=== PATIENT | male | born 1960 | race Caucasian/White ===

== ENCOUNTER 2017-02-22 17:30 | Observation (INO) | payer OTHER ==
[~2017-02-22] VITALS: Ht 172.7 cm; Wt 95.5 kg
[2017-02-22 17:32] VITALS: BP 164/88; PULSE 88; RESP 18; TEMP 97.5; O2SAT 90
--- NOTE | 2017-02-22 17:42 | PD ---
Physical Exam Time Seen by Provider: 17:39 Narrative 56yo M c/o abd pain that started about 2 hours ago. Had a procedure this morning to stretch his esophagus as [place]. Hx of esophageal CA and had most of esophagus and stomach removed January 25 at [facility]. +Vomiting. Denies fever. Patient seen in triage. VS reviewed. Awaiting bed placement. Data Data Last Documented VS Vital Signs Date Time Temp Pulse Resp B/P Pulse Ox O2 Delivery O2 Flow Rate FiO2 02/22/17 17:32 97.5 88 18 164/88 90 Room Air MDM Supervised Visit with DARRYN: Jocelyn Burnette Feb 22, 2017 17:42
[2017-02-22] MEDS ORDERED: SODIUM CHLOR 0.9% 1000 ML INJ 1,000 ML IV SCH (18:04)
--- NOTE | 2017-02-22 18:12 | PD ---
HPI Chief Complaint: Abdominal Pain Time Seen by Provider: 18:04 Travel History International Travel<30 days: No Contact w/Intl Traveler<30days: No Traveled to known affect area: No History of Present Illness HPI 56-year-old male with history of esophageal cancer status post distal esophagectomy, had a endoscopy and esophageal stretching this morning at [place], presents to the ER today because he states that he started having nausea , vomiting, and stomach cramping. He states he has been constipated, did have a bowel movement today. He states the cramping is on and off. Pain is currently an 8 out of 10. He denies any fevers or other symptoms. Modifying Factors: None Associated Signs & Symptoms: Status post esophageal procedure this morning, abdominal cramping pain, vomiting Risk Factors: History of esophageal cancer and esophagectomy PFSH Past Medical History Autoimmune Disease: No Anxiety: Yes Depression: Yes Cancer: No Cardiovascular Problems: Yes High Cholesterol: Yes Chemotherapy: Yes (ESOPHAGEAL CA) Endocrine: No Genitourinary: No Headaches: Yes Hypertension: Yes (NOT CURRENTLY) Musculoskeletal: Yes Neurologic: Yes Respiratory: Yes Immunizations Current: Yes Sleep Apnea: Yes (DOES NOT USE C PAP) Past Surgical History Abdominal Surgery: Yes (UMBILICAL HERNIA REPAIR) Body Medical Devices: SPINAL CORD STIMULATOR Cholecystectomy: Yes Neurologic Surgery: Yes (SPINAL CORD STIMULATOR, CERVICAL FUSION C5-C6) Oral Surgery: Yes (TEETH IMPLANTS) Other Surgery: Yes (HEMMORHOIDECTOMY) Social History Alcohol Use: Yes (OCCATIONAL BEER) Tobacco Use: No (FORMER) Substance Use: No Allergies-Medications (Allergen,Severity, Reaction): Coded Allergies: No Known Allergies (Verified , 02/22/17) Reported Meds & Prescriptions Reported Meds & Active Scripts Active Review of Systems Except as stated in HPI: all other systems reviewed are Neg Physical Exam Narrative GENERAL: Well-developed middle age male patient currently in mild distress. Awake and oriented 3. SKIN: Focused skin assessment warm/dry. HEAD: Atraumatic. Normocephalic. EYES: Pupils equal and round. No scleral icterus. No injection or drainage. ENT: No nasal bleeding or discharge. Mucous membranes pink and moist. NECK: Trachea midline. No JVD. CARDIOVASCULAR: Regular rate and rhythm. No murmur appreciated. RESPIRATORY: No accessory muscle use. Clear to auscultation. Breath sounds equal bilaterally. GASTROINTESTINAL: Abdomen soft, upper abdominal tenderness without guarding or rebound, mildly distended. Hepatic and splenic margins not palpable. G-tube appears to be in place. MUSCULOSKELETAL: No obvious deformities. No clubbing. No cyanosis. No edema. NEUROLOGICAL: Awake and alert. No obvious cranial nerve deficits. Motor grossly within normal limits. Normal speech. PSYCHIATRIC: Appropriate mood and affect; insight and judgment normal. Data Data Last Documented VS Vital Signs Date Time Temp Pulse Resp B/P Pulse Ox O2 Delivery O2 Flow Rate FiO2 02/22/17 18:43 91 Nasal Cannula 4 02/22/17 17:32 97.5 88 18 164/88 Orders Complete Blood Count With Diff (02/22/17 18:04) Comprehensive Metabolic Panel (02/22/17 18:04) Lipase (02/22/17 18:04) Urinalysis - C+S If Indicated (02/22/17 18:04) Ct Abd/Pel W Iv Contrast(Rout) (02/22/17 18:04) Iv Access Insert/Monitor (02/22/17 18:04) Ecg Monitoring (02/22/17 18:04) Oximetry (02/22/17 18:04) Morphine Inj (Morphine Inj) (02/22/17 18:15) Ondansetron Inj (Zofran Inj) (02/22/17 18:15) Sodium Chlor 0.9% 1000 Ml Inj (Ns 1000 M (02/22/17 18:04) Sodium Chloride 0.9% Flush (Ns Flush) (02/22/17 18:15) Labs Laboratory Tests Test 02/22/17 18:15 White Blood Count 12.0 TH/MM3 Red Blood Count 3.95 MIL/MM3 Hemoglobin 12.1 GM/DL Hematocrit 35.9 % Mean Corpuscular Volume 90.7 FL Mean Corpuscular Hemoglobin 30.5 PG Mean Corpuscular Hemoglobin 33.7 % Concent Red Cell Distribution Width 14.1 % Platelet Count 357 TH/MM3 Mean Platelet Volume 7.6 FL Neutrophils (%) (Auto) 85.8 % Lymphocytes (%) (Auto) 6.7 % Monocytes (%) (Auto) 5.1 % Eosinophils (%) (Auto) 2.1 % Basophils (%) (Auto) 0.3 % Neutrophils # (Auto) 10.3 TH/MM3 Lymphocytes # (Auto) 0.8 TH/MM3 Monocytes # (Auto) 0.6 TH/MM3 Eosinophils # (Auto) 0.3 TH/MM3 Basophils # (Auto) 0.0 TH/MM3 CBC Comment DIFF FINAL Differential Comment Sodium Level 139 MEQ/L Potassium Level 3.8 MEQ/L Chloride Level 100 MEQ/L Carbon Dioxide Level 34.9 MEQ/L Anion Gap 4 MEQ/L Blood Urea Nitrogen 9 MG/DL Creatinine 0.95 MG/DL Estimat Glomerular Filtration 81 ML/MIN Rate Random Glucose 105 MG/DL Calcium Level 9.1 MG/DL Aspartate Amino Transf 14 U/L (AST/SGOT) Alanine Aminotransferase 15 U/L (ALT/SGPT) Albumin 3.1 GM/DL Lipase 78 U/L [facility] Medical Decision Making Medical Screen Exam Complete: Yes Emergency Medical Condition: Yes Medical Record Reviewed: Yes Interpretation(s) Laboratory Tests Test 02/22/17 18:15 White Blood Count 12.0 TH/MM3 (4.0-11.0) Red Blood Count 3.95 MIL/MM3 (4.50-5.90) Hemoglobin 12.1 GM/DL (13.0-17.0) Hematocrit 35.9 % (39.0-51.0) Neutrophils (%) (Auto) 85.8 % (16.0-70.0) Lymphocytes (%) (Auto) 6.7 % (9.0-44.0) Neutrophils # (Auto) 10.3 TH/MM3 (1.8-7.7) Lymphocytes # (Auto) 0.8 TH/MM3 (1.0-4.8) Carbon Dioxide Level 34.9 MEQ/L (21.0-32.0) Anion Gap 4 MEQ/L (5-15) Estimat Glomerular Filtration 81 ML/MIN (>89) Rate Aspartate Amino Transf 14 U/L (15-37) (AST/SGOT) Albumin 3.1 GM/DL (3.4-5.0) Differential Diagnosis Abdominal pain, nausea and vomiting after endoscopy this morningpostop pain versus obstruction versus esophageal rupture versus perforation versus esophagitis Narrative Course Lab work and CAT scan ordered for the patient for further evaluation. IV fluids and Zofran given. Physician Communication Physician Communication Case is signed out to Dr. Arreola at 7 PM pending CAT scan and workup. Disposition based on workup. Diagnosis Primary Impression: Nausea and vomiting Elise Stevenson MD Feb 22, 2017 18:12
[2017-02-22] MEDS ORDERED: MORPHINE SULFATE 4 MG/ML INJ IV PUSH ONE (18:15)
[2017-02-22] MEDS ORDERED: SODIUM CHLORIDE 0.9% FLUSH 10 ML FLUSH IV FLUSH PRN ×2 (18:15→21:45)
[2017-02-22] MEDS ORDERED: ONDANSETRON HCL 4 MG/2 ML VIAL IVP ONE ×2 (18:15→21:00)
[2017-02-22 18:27] LABS: AUTOMATED NEUTROPHIL # 10.3 TH/MM3 (1.8-7.7); BASOPHIL % 0.3 % (0.0-2.0); EOSINOPHIL # 0.3 TH/MM3 (0-0.4); EOSINOPHIL % 2.1 % (0.0-4.0); HEMATOCRIT 35.9 % (39.0-51.0); HEMO FLAGS DIFF FINAL; LYMPH % 6.7 % (9.0-44.0); LYMPHOCYTE # 0.8 TH/MM3 (1.0-4.8); MEAN CELL VOLUME 90.7 FL (80.0-100.0); MEAN CORPUSCULAR HEMOGLOBIN 30.5 PG (27.0-34.0); MEAN CORPUSCULAR HGB CONC 33.7 % (32.0-36.0); MONO % 5.1 % (0.0-8.0); NEUT % 85.8 % (16.0-70.0); PLATELET COUNT 357 TH/MM3 (150-450); RED BLOOD COUNT 3.95 MIL/MM3 (4.50-5.90); RED CELL DISTRIBUTION WIDTH 14.1 % (11.6-17.2)
[2017-02-22 18:43] VITALS: O2SAT 91
[2017-02-22 18:50] LABS: ALT (GPT) 15 U/L (12-78); ANION GAP 4 MEQ/L (5-15); AST (GOT) 14 U/L (15-37); BICARBONATE 34.9 MEQ/L (21.0-32.0); BLOOD UREA NITROGEN 9 MG/DL (7-18); CHLORIDE 100 MEQ/L (98-107); GLOMERULAR FILTRATION RATE 81 ML/MIN (>89); POTASSIUM 3.8 MEQ/L (3.5-5.1); SODIUM (NA) 139 MEQ/L (136-145)
[2017-02-22 18:53] LABS: ALKALINE PHOSPHATASE 143 U/L (45-117); TOTAL BILIRUBIN ADULT 0.5 MG/DL (0.2-1.0)
[2017-02-22] MEDS ORDERED: IOHEXOL 350 MG/ML 10 ML VIAL (for RAD DIAG) IV ONE (19:49)
--- NOTE | 2017-02-22 20:20 | RADRPT ---
EXAM DATE/TIME: 02/22/2017 19:36 This report includes an Addendum and supersedes previous reports for this exam. [place] COMPARISON: No previous studies available for comparison. INDICATIONS : Abdomen pain, lower pelvis pain started after endo procedure IV CONTRAST: 81 cc Omnipaque 350 (iohexol) IV ORAL CONTRAST: No oral contrast ingested. RADIATION DOSE: 12.02 CTDIvol (mGy) MEDICAL HISTORY : Cardiovascular disease. Hypertension. ESOPHOGEAL CANCER SURGICAL HISTORY : Cholecystectomy. Umbilical hernia repair. CERVICAL FUSION, ESPHOGEAL SURGERY ENCOUNTER: Initial ACUITY: 1 day PAIN SCALE: 7/10 LOCATION: Abdomen TECHNIQUE: Volumetric scanning of the abdomen and pelvis was performed. Using automated exposure control and ad justment of the mA and/or kV according to patient size, radiation dose was kept as low as reasonably achievable to obtain optimal diagnostic quality images. FINDINGS: LOWER LUNGS: There is a small right pleural effusion. There postsurgical changes status post esophagectomy and gas tric pull-through procedure. There is mild consolidation at the right lung base. There is mild consol idation left lower lobe as well. LIVER: Homogeneous density without lesion. There is no dilation of the biliary tree there he is status post cholecystectomy. SPLEEN: Normal size without lesion. PANCREAS: Within normal limits. KIDNEYS: Normal in size and shape. There is no mass, stone or hydronephrosis. ADRENAL GLANDS: Within normal limits. VASCULAR: There is no aortic aneurysm. BOWEL/MESENTERY: There are postsurgical changes status post esophagectomy and gastric pull through procedure. There ar e several low-attenuation fluidlike collections in the upper abdomen along the course of the esophage ctomy. The larger measures 4.4 x 4.6 cm in diameter and is best seen on axial image #33. There is a s econd lower density collection seen on axial image #26 measuring up to approximately 2.8 x 2.7 cm. Th ere is wispy soft tissue density along portions of the anterior mesentery. The small bowel is decompr essed. The colon is unremarkable in appearance. There is a jejunostomy tube in place. No oral contras t was given limiting the sensitivity of the exam. ABDOMINAL WALL: Within normal limits. RETROPERITONEUM: There is no lymphadenopathy. BLADDER: No wall thickening or mass. REPRODUCTIVE: Within normal limits. INGUINAL: There is no lymphadenopathy or hernia. MUSCULOSKELETAL: There is a 4.5 x 3.2 cm low-attenuation fluidlike collection along the right lower lateral chest wall which is located adjacent to the right effusion. This measures 9 Hounsfield units in density. The os seous structures are otherwise unremarkable. CONCLUSION: 1. Surgical changes status post esophagectomy and gastric pull through procedure. There are several l ow-attenuation fluidlike structures located in the upper abdomen which are of unclear significance. I t is not certain whether these are intraluminal or extraluminal. Comparison with any old outside stud ies would be helpful. A followup study with oral contrast may be helpful. 2. Low attenuation collection along the right lower lateral chest wall measuring up to approximately 4.5 x 3.2 cm in diameter measuring 9 Hounsfield units in density. This is nonspecific but could repre sent a postsurgical change. This also could represent fluid extending through the lateral chest wall. 3. Wispy soft tissue densities along the anterior mesentery of the abdomen of unclear significance. T his could represent inflammatory change. 4. Small right pleural effusion. There is mild consolidation in both lower lobes. Peterson Carter MD on February 22, 2017 at 20:08 Board Certified Radiologist. This report was verified electronically. ADDENDUM: I've been asked to review the above. Low-density collections are identified at the gastrojejunal junc tion. There is communication from this collection to a similar density lesion associated with the jones creatic head/neck. Hounsfield measurements are approximately 15 and I believe this probably represent s fluid. Additional low density lesion is identified in the lateral chest which again, may represent fluid. However, with no a priori knowledge of the patient's clinical condition or surgical interventi ons, abnormal low density lymph nodes or mass lesions cannot be completely excluded. Comparison with any outside studies would be useful. The larger lesion next to the pancreatic head would be amenable to percutaneous drainage/biopsy if clinically warranted. Jaspreet Moore MD on February 24, 2017 at 11:36 Board Certified Radiologist. This report was verified electronically.
[2017-02-22 20:21] VITALS: BP 134/77; PULSE 85; RESP 18; O2SAT 98
[2017-02-22] MEDS ORDERED: PANT40TA3 PO (20:27)
[2017-02-22] MEDS ORDERED: REGL10TA5 PO (20:27)
[2017-02-22] MEDS ORDERED: HYDR1SOL6 G-TUBE (20:27)
[2017-02-22] MEDS ORDERED: METO25TA3 PO (20:27)
[2017-02-22] MEDS ORDERED: FENT50T T-DERMAL (20:27)
[2017-02-22] MEDS ORDERED: XANA2TAB2 PO (20:27)
[2017-02-22] MEDS ORDERED: ONDA1TAB16 PO (20:28)
[2017-02-22] MEDS ORDERED: DEXT 5%-NACL 0.45% 1000 ML INJ 1,000 ML IV SCH (20:45)
--- NOTE | 2017-02-22 20:53 | PD ---
Physical Exam Date Seen by Provider: Feb 22, 2017 Time Seen by Provider: 20:40 Narrative The patient was signed out to me by Dr. Cabello. Patient presented with complaints of abdominal pain after having a endoscopy today. The patient after going home started experiencing severe abdominal pain with associated nausea and vomiting. Per notes, it appears that they did several biopsies on the endoscopy however did not find in the esophageal stricture. They were recommending that he have a lower colonoscopy to evaluate the "tube". Data Data Last Documented VS Vital Signs Date Time Temp Pulse Resp B/P Pulse Ox O2 Delivery O2 Flow Rate FiO2 02/22/17 20:21 85 18 134/77 98 Room Air 02/22/17 18:43 4 02/22/17 17:32 97.5 Orders Complete Blood Count With Diff (02/22/17 18:04) Comprehensive Metabolic Panel (02/22/17 18:04) Lipase (02/22/17 18:04) Urinalysis - C+S If Indicated (02/22/17 18:04) Ct Abd/Pel W Iv Contrast(Rout) (02/22/17 18:04) Iv Access Insert/Monitor (02/22/17 18:04) Ecg Monitoring (02/22/17 18:04) Oximetry (02/22/17 18:04) Morphine Inj (Morphine Inj) (02/22/17 18:15) Ondansetron Inj (Zofran Inj) (02/22/17 18:15) Sodium Chlor 0.9% 1000 Ml Inj (Ns 1000 M (02/22/17 18:04) Sodium Chloride 0.9% Flush (Ns Flush) (02/22/17 18:15) Iohexol 350 Inj (Omnipaque 350 Inj) (02/22/17 19:49) Admit Order (Ed Use Only) (02/22/17 20:40) Dext 5%-Nacl 0.45% 1000 Ml Inj (D5w-1/2 (02/22/17 20:45) Labs Laboratory Tests Test 02/22/17 18:15 White Blood Count 12.0 TH/MM3 Red Blood Count 3.95 MIL/MM3 Hemoglobin 12.1 GM/DL Hematocrit 35.9 % Mean Corpuscular Volume 90.7 FL Mean Corpuscular Hemoglobin 30.5 PG Mean Corpuscular Hemoglobin 33.7 % Concent Red Cell Distribution Width 14.1 % Platelet Count 357 TH/MM3 Mean Platelet Volume 7.6 FL Neutrophils (%) (Auto) 85.8 % Lymphocytes (%) (Auto) 6.7 % Monocytes (%) (Auto) 5.1 % Eosinophils (%) (Auto) 2.1 % Basophils (%) (Auto) 0.3 % Neutrophils # (Auto) 10.3 TH/MM3 Lymphocytes # (Auto) 0.8 TH/MM3 Monocytes # (Auto) 0.6 TH/MM3 Eosinophils # (Auto) 0.3 TH/MM3 Basophils # (Auto) 0.0 TH/MM3 CBC Comment DIFF FINAL Differential Comment Sodium Level 139 MEQ/L Potassium Level 3.8 MEQ/L Chloride Level 100 MEQ/L Carbon Dioxide Level 34.9 MEQ/L Anion Gap 4 MEQ/L Blood Urea Nitrogen 9 MG/DL Creatinine 0.95 MG/DL Estimat Glomerular Filtration 81 ML/MIN Rate Random Glucose 105 MG/DL Calcium Level 9.1 MG/DL Total Bilirubin 0.5 MG/DL Aspartate Amino Transf 14 U/L (AST/SGOT) Alanine Aminotransferase 15 U/L (ALT/SGPT) Alkaline Phosphatase 143 U/L Total Protein 7.7 GM/DL Albumin 3.1 GM/DL Lipase 78 U/L MDM Medical Record Reviewed: Yes Supervised Visit with DARRYN: No Differential Diagnosis Bowel obstruction versus perforated esophagus versus obstipation Narrative Course 56-year-old male presents with abdominal pain after having an upper endoscopy today. The patient has a white count of 12.1. The rest of his electrolytes appear not grossly abnormal. CT scan shows multiple nonspecific abnormalities including fluid collections. There does not appear to be any free air noted. The patient will be brought in under observation and possibly made full admission depending upon what they find the next 24 hours. The case was discussed with Dr. Dr. Orlando Rajput, covering for for [facility], who agreed with the placement in the hospital. He recommended we put the patient under Dr. Ab Le. The patient will be given pain medication. He also be given IVs fluids. Further workup and disposition will be per the admitting team. Diagnosis Primary Impression: Nausea and vomiting Additional Impressions: Abdominal pain multiple nonspecific CT findings. history of esophageal cancer, status post resection. Admitting Information Admitting Physician Requests: Observation Anish Arreola MD Feb 22, 2017 20:53
[2017-02-22] MEDS ORDERED: HYDROmorphone HCL PF 2 MG/ML VIAL IVS ONE (21:00)
[2017-02-22] MEDS ORDERED: MAGNESIUM HYDROXIDE SUSP 30 ML CUP PO PRN (21:45)
[2017-02-22] MEDS ORDERED: HYDROmorphone HCL PF 1 MG/ML VIAL IV PRN (21:45)
[2017-02-22] MEDS ORDERED: LACTULOSE SYRUP 20 GM/30 ML CUP PO PRN (21:45)
[2017-02-22] MEDS ORDERED: SENNOSIDES 8.6 MG TAB PO PRN (21:45)
[2017-02-22] MEDS: SODIUM CHLOR 0.45% 1000 ML INJ 1,000 ML IV SCH (21:45)
[2017-02-22] MEDS ORDERED: ONDANSETRON HCL 4 MG/2 ML VIAL IVP PRN (21:45)
[2017-02-22] MEDS ORDERED: NALOXONE HCL 0.4 MG/ML AMP IV PRN (21:45)
[2017-02-22] MEDS ORDERED: BISACODYL 10 MG SUPP RECTAL PRN (21:45)
[2017-02-22] MEDS ORDERED: PILL SPLITTER OTHER PRN (22:00)
--- NOTE | 2017-02-22 22:02 | HHI.HP ---
HPI Service [facility] Hospitalists Primary Care Physician Wendy Hua M.D. Admission Diagnosis abdominal pain, nausea vomiting, multiple ct abnormalities. Chief Complaint: abdominal pain with nausea and vomit today s/p endoscopy today Travel History International Travel<30 Days: No Contact w/Intl Traveler <30 Da: No Traveled to Known Affected Are: No History of Present Illness . Patient presented with complaints of abdominal pain after having a endoscopy today. The patient after going home started experiencing severe abdominal pain with associated nausea and vomiting. Per notes, it appears that they did several biopsies on the endoscopy and was to have stretch of stricture. 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 Patient in er had CT showed several areas fluid and suggesting repeat CT in am , patient will be admitted with GI consult for further evaluation. Review of Systems Gastrointestinal: COMPLAINS OF: Abdominal pain, Nausea, Vomiting Past Family Social History Past Medical History hypertension, Past Surgical History c spine fusion,lumbar stimulator,shoulder surgery vasectomy gallbladder Reported Medications metoprolol protonix pain meds Allergies: Coded Allergies: No Known Allergies (Verified , 02/22/17) Social History former smoker occ etoh Physical Exam Vital Signs Vital Signs Date Time Temp Pulse Resp B/P Pulse Ox O2 Delivery O2 Flow Rate FiO2 02/22/17 20:21 85 18 134/77 98 Room Air 02/22/17 18:43 91 Nasal Cannula 4 02/22/17 17:32 97.5 88 18 164/88 90 Room Air Physical Exam GENERAL: This is a well-nourished, well-developed patient, in no apparent distress. SKIN: No rashes, ecchymoses or lesions. Cool and dry. HEAD: Atraumatic. Normocephalic. No temporal or scalp tenderness. EYES: Pupils equal round and reactive. Extraocular motions intact. No scleral icterus. No injection or drainage. ENT: Nose without bleeding, purulent drainage or septal hematoma. Throat without erythema, tonsillar hypertrophy or exudate. Uvula midline. Airway patent. NECK: Trachea midline. No JVD or lymphadenopathy. Supple, nontender, no meningeal signs. CARDIOVASCULAR: Regular rate and rhythm without murmurs, gallops, or rubs. RESPIRATORY: Clear to auscultation. Breath sounds equal bilaterally. No wheezes , rales, or rhonchi. GASTROINTESTINAL: Abdomen soft, mild-tender, nondistended. No hepato- splenomegaly, or palpable masses. No guarding. MUSCULOSKELETAL: Extremities without clubbing, cyanosis, or edema. No joint tenderness, effusion, or edema noted. No calf tenderness. Negative Homans sign bilaterally. NEUROLOGICAL: Awake and alert. Cranial nerves II through XII intact. Motor and sensory grossly within normal limits. Five out of 5 muscle strength in all muscle groups. Normal speech. Laboratory Laboratory Tests Test 02/22/17 18:15 White Blood Count 12.0 Red Blood Count 3.95 Hemoglobin 12.1 Hematocrit 35.9 Mean Corpuscular Volume 90.7 Mean Corpuscular Hemoglobin 30.5 Mean Corpuscular Hemoglobin 33.7 Concent Red Cell Distribution Width 14.1 Platelet Count 357 Mean Platelet Volume 7.6 Neutrophils (%) (Auto) 85.8 Lymphocytes (%) (Auto) 6.7 Monocytes (%) (Auto) 5.1 Eosinophils (%) (Auto) 2.1 Basophils (%) (Auto) 0.3 Neutrophils # (Auto) 10.3 Lymphocytes # (Auto) 0.8 Monocytes # (Auto) 0.6 Eosinophils # (Auto) 0.3 Basophils # (Auto) 0.0 CBC Comment DIFF FINAL Differential Comment Sodium Level 139 Potassium Level 3.8 Chloride Level 100 Carbon Dioxide Level 34.9 Anion Gap 4 Blood Urea Nitrogen 9 Creatinine 0.95 Estimat Glomerular Filtration 81 Rate Random Glucose 105 Calcium Level 9.1 Total Bilirubin 0.5 Aspartate Amino Transf 14 (AST/SGOT) Alanine Aminotransferase 15 (ALT/SGPT) Alkaline Phosphatase 143 Total Protein 7.7 Albumin 3.1 Lipase 78 Result Diagram: 02/22/17181402/22/171814 Imaging Last 24 hours Impressions Abdomen/Pelvis CT 02/22/171803 Signed Impressions: Service Date/Time: Wednesday, February 22, 2017 19:36 - CONCLUSION: 1. Surgical changes status post esophagectomy and gastric pull through procedure. There are several low-attenuation fluidlike structures located in the upper abdomen which are of unclear significance. It is not certain whether these are intraluminal or extraluminal. Comparison with any old outside studies would be helpful. A followup study with oral contrast may be helpful. 2. Low attenuation collection along the right lower lateral chest wall measuring up to approximately 4.5 x 3.2 cm in diameter measuring 9 Hounsfield units in density. This is nonspecific but could represent a postsurgical change. This also could represent fluid extending through the lateral chest wall. 3. Wispy soft tissue densities along the anterior mesentery of the abdomen of unclear significance. This could represent inflammatory change. 4. Small right pleural effusion. There is mild consolidation in both lower lobes. Peterson Carter MD Course in er given IV fluid pain meds Assessment and Plan Problem List: (1) Abdominal pain Status: Acute Plan: will give hydromorph with zofran IV fluid and consult GI for further evaluation (2) Nausea and vomiting Status: Acute Plan: as above Assessment and Plan as above patient has some CT changes will get chest xray and follow labs in am Code Status full Discussed Condition With patient Orlando Rajput MD Feb 22, 2017 22:02
[2017-02-22] MEDS: DEXT 5%-NACL 0.45% 1000 ML INJ 1,000 ML IV SCH (22:15)
[2017-02-22] MEDS: PANTOPRAZOLE SODIUM 40 MG VIAL IV PUSH SCH (22:16)
[2017-02-22] MEDS: METOCLOPRAMIDE HCL 10 MG/2 ML VIAL IV PUSH SCH (22:16)
[2017-02-23] MEDS: HYDROmorphone HCL PF 1 MG/ML VIAL IV PRN ×7 (00:05→22:16)
[2017-02-23 00:45] VITALS: BP 121/70; PULSE 66; RESP 20; TEMP 98; O2SAT 90
[2017-02-23 04:33] VITALS: BP 138/84; PULSE 75; RESP 20; TEMP 98; O2SAT 93
[2017-02-23] MEDS: METOCLOPRAMIDE HCL 10 MG/2 ML VIAL IV PUSH SCH ×3 (05:45→21:55)
[2017-02-23 07:34] LABS: AUTOMATED NEUTROPHIL # 4.3 TH/MM3 (1.8-7.7); BASOPHIL % 0.6 % (0.0-2.0); EOSINOPHIL # 0.3 TH/MM3 (0-0.4); EOSINOPHIL % 4.9 % (0.0-4.0); HEMATOCRIT 33.1 % (39.0-51.0); HEMO FLAGS DIFF FINAL; LYMPH % 23.8 % (9.0-44.0); LYMPHOCYTE # 1.7 TH/MM3 (1.0-4.8); MEAN CELL VOLUME 91.4 FL (80.0-100.0); MEAN CORPUSCULAR HEMOGLOBIN 29.8 PG (27.0-34.0); MEAN CORPUSCULAR HGB CONC 32.6 % (32.0-36.0); MONO % 10.4 % (0.0-8.0); NEUT % 60.3 % (16.0-70.0); PLATELET COUNT 306 TH/MM3 (150-450); RED BLOOD COUNT 3.62 MIL/MM3 (4.50-5.90); RED CELL DISTRIBUTION WIDTH 14.1 % (11.6-17.2); WHITE BLOOD COUNT 7.1 TH/MM3 (4.0-11.0)
[2017-02-23 07:56] LABS: ALT (GPT) 14 U/L (12-78); ANION GAP 6 MEQ/L (5-15); AST (GOT) 13 U/L (15-37); BICARBONATE 34.8 MEQ/L (21.0-32.0); BLOOD UREA NITROGEN 7 MG/DL (7-18); CHLORIDE 100 MEQ/L (98-107); GLOMERULAR FILTRATION RATE 95 ML/MIN (>89); SODIUM (NA) 141 MEQ/L (136-145)
[2017-02-23 07:57] LABS: ALKALINE PHOSPHATASE 122 U/L (45-117); TOTAL BILIRUBIN ADULT 0.4 MG/DL (0.2-1.0)
[2017-02-23 08:18] VITALS: BP 137/72; PULSE 78; RESP 20; TEMP 98.3; O2SAT 94
[2017-02-23] MEDS: SODIUM CHLORIDE 0.9% FLUSH 10 ML FLUSH IV FLUSH SCH ×2 (09:00→21:00)
[2017-02-23] MEDS: METOPROLOL TARTRATE 25 MG TAB PO SCH ×2 (09:24→21:54)
[2017-02-23] MEDS: DOCUSATE SODIUM 50 MG/SENNA 8.6 MG TAB PO SCH ×2 (09:24→21:55)
[2017-02-23] MEDS: ALPRAZolam 1 MG TAB PO SCH ×2 (09:24→21:54)
[2017-02-23] MEDS: DEXT 5%-NACL 0.45% 1000 ML INJ 1,000 ML IV SCH (09:25)
--- NOTE | 2017-02-23 10:00 | HHI.PR ---
Subjective Remarks Pt underwent esogagectmy with upper flexible endoscopy and placementj of jejunal feeding tube by Dr. Froylan Ch at 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 Chang. Pt underwent EGD 02/22/[address] Colbert at [place]. Pt found to have LA Class D esophagitis. Multiple biopsies performed. Pt presented to ER yesterday evening with c/o n/v & abdominal pain. Case d/w Dr. Colbert by phone. Pt had similar complaints yesterday prior to EGD. Dr. Colbert is concerned about SBO/partial SBO possible over-inflated J-tube. Upper GI series with SBFT recommended. Objective Vitals Vital Signs Date Time Temp Pulse Resp B/P Pulse Ox O2 Delivery O2 Flow Rate FiO2 02/23/17 08:18 98.3 78 20 137/72 94 02/23/17 05:42 18 02/23/17 05:32 18 02/23/17 04:33 98.0 75 20 138/84 93 02/23/17 00:45 98.0 66 20 121/70 90 02/22/17 20:21 85 18 134/77 98 Room Air 02/22/17 19:00 18 02/22/17 18:43 91 Nasal Cannula 4 02/22/17 17:32 97.5 88 18 164/88 90 Room Air 02/22/17 02/22/17 02/23/17 15:00 23:00 07:00 Output Total 300 ml Balance -300 ml Output Emesis 300 ml Result Diagram: 02/23/17 0625 02/23/17 0625 Imaging Last 24 hours Impressions Abdomen/Pelvis CT 02/22/17 1804 Signed Impressions: Service Date/Time: Wednesday, February 22, 2017 19:36 - CONCLUSION: 1. Surgical changes status post esophagectomy and gastric pull through procedure. There are several low-attenuation fluidlike structures located in the upper abdomen which are of unclear significance. It is not certain whether these are intraluminal or extraluminal. Comparison with any old outside studies would be helpful. A followup study with oral contrast may be helpful. 2. Low attenuation collection along the right lower lateral chest wall measuring up to approximately 4.5 x 3.2 cm in diameter measuring 9 Hounsfield units in density. This is nonspecific but could represent a postsurgical change. This also could represent fluid extending through the lateral chest wall. 3. Wispy soft tissue densities along the anterior mesentery of the abdomen of unclear significance. This could represent inflammatory change. 4. Small right pleural effusion. There is mild consolidation in both lower lobes. Peterson Carter MD A/P Problem List: (1) Abdominal pain Status: Acute Plan: - Pt underwent esogagectmy with upper flexible endoscopy and placement of jejunal feeding tube by Dr. Froylan Ch at 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 Chang, Oncology - Pt underwent EGD 02/22/[address] Colbert at [place]. - Pt found to have LA Class D esophagitis. - Multiple biopsies performed. - Pt presented to ER yesterday evening with c/o n/v & abdominal pain. - Case d/w Dr. Colbert by phone. Pt had similar complaints yesterday prior to EGD. - Dr. Colbert is concerned about SBO/partial SBO possible over-inflated J-tube. - Upper GI series with SBFT ordered - Case d/w General Surgery, Dr. Arellano, he will consult. - continue scheduled hydrocodone elixir - prn IV dilaudid - prn zofran (2) Nausea and vomiting Status: Acute Plan: as above (3) HTN (hypertension) Status: Chronic Plan: - stable - metoprolol Problem Qualifiers (1) HTN (hypertension): Qualified Code: I10 - Essential hypertension Ab Le DO Feb 23, 2017 09:59
--- NOTE | 2017-02-23 10:14 | PD.CONS ---
HPI History of Present Illness This is a 56 year old gentleman with hx esophageal adenocarcinoma sp esophagectomy and gastric pull through at January who presented last night, after having EGD with dilation yesterday- but no dilation was required, he did biopsies. After the EGD he began having severe lower abdominal pain, n/v. No blood in emesis. The pain was crampy. Pt has J tube from [place] since January 25 and has not been tolerating tube feeds nor PO intake except saltines. AFter tube feeds he becomes nauseous and throws up the tube feed. Per pt's , Dr Colbert after EGD recommended soft foods PO. He tried scrambled eggs and went to sleep and then had pain. (Jyoti Lambert) PFSH Past Medical History back issues - herniated discs hx AF after surgery HTN Past Surgical History c5-6 fusion spinal cord stim insert cholecystectomy left shoulder scope repair umbilical hernia (Jyoti Lambert) Coded Allergies: No Known Allergies (Verified , 02/22/17) Family History autoimmune dz - sister DM CVA Social History rare ETOH no tobacco - quit couple years ago no illicit drugs (Jyoti Lambert) Review of Systems Constitutional: DENIES: Fever Eyes: DENIES: Blurred vision Ears, nose, mouth, throat: DENIES: Hearing loss Respiratory: DENIES: Hemoptysis Cardiovascular: DENIES: Chest pain Gastrointestinal: COMPLAINS OF: Abdominal pain, Nausea, Vomiting, DENIES: Black stools, Bloody stools, Constipation, Diarrhea, Difficulty Swallowing, Hematemesis Genitourinary: DENIES: Hematuria Musculoskeletal: DENIES: Muscle aches Integumentary: DENIES: Abnormal pigmentation Neurologic: DENIES: Abnormal gait Psychiatric: DENIES: Confusion (Jyoti Lambert) GI Exam Vitals I&O Vital Signs Date Time Temp Pulse Resp B/P Pulse Ox O2 Delivery O2 Flow Rate FiO2 02/23/17 08:18 98.3 78 20 137/72 94 02/23/17 05:42 18 02/23/17 05:32 18 02/23/17 04:33 98.0 75 20 138/84 93 02/23/17 00:45 98.0 66 20 121/70 90 02/22/17 20:21 85 18 134/77 98 Room Air 02/22/17 19:00 18 02/22/17 18:43 91 Nasal Cannula 4 02/22/17 17:32 97.5 88 18 164/88 90 Room Air I/O 02/22/17 02/22/17 02/22/17 02/23/17 02/23/17 02/23/17 07:00 15:00 23:00 07:00 15:00 23:00 Output Total 300 ml Balance -300 ml Output Emesis 300 ml Imaging Last Impressions Abdomen/Pelvis CT 02/22/17 1804 Signed Impressions: Service Date/Time: Wednesday, February 22, 2017 19:36 - CONCLUSION: 1. Surgical changes status post esophagectomy and gastric pull through procedure. There are several low-attenuation fluidlike structures located in the upper abdomen which are of unclear significance. It is not certain whether these are intraluminal or extraluminal. Comparison with any old outside studies would be helpful. A followup study with oral contrast may be helpful. 2. Low attenuation collection along the right lower lateral chest wall measuring up to approximately 4.5 x 3.2 cm in diameter measuring 9 Hounsfield units in density. This is nonspecific but could represent a postsurgical change. This also could represent fluid extending through the lateral chest wall. 3. Wispy soft tissue densities along the anterior mesentery of the abdomen of unclear significance. This could represent inflammatory change. 4. Small right pleural effusion. There is mild consolidation in both lower lobes. Peterson Carter MD Laboratory Test 02/22/17 02/23/17 18:15 06:25 White Blood Count 12.0 TH/MM3 7.1 TH/MM3 Red Blood Count 3.95 MIL/MM3 3.62 MIL/MM3 Hemoglobin 12.1 GM/DL 10.8 GM/DL Hematocrit 35.9 % 33.1 % Mean Corpuscular Volume 90.7 FL 91.4 FL Mean Corpuscular Hemoglobin 30.5 PG 29.8 PG Mean Corpuscular Hemoglobin 33.7 % 32.6 % Concent Red Cell Distribution Width 14.1 % 14.1 % Platelet Count 357 TH/MM3 306 TH/MM3 Mean Platelet Volume 7.6 FL 8.3 FL Neutrophils (%) (Auto) 85.8 % 60.3 % Lymphocytes (%) (Auto) 6.7 % 23.8 % Monocytes (%) (Auto) 5.1 % 10.4 % Eosinophils (%) (Auto) 2.1 % 4.9 % Basophils (%) (Auto) 0.3 % 0.6 % Neutrophils # (Auto) 10.3 TH/MM3 4.3 TH/MM3 Lymphocytes # (Auto) 0.8 TH/MM3 1.7 TH/MM3 Monocytes # (Auto) 0.6 TH/MM3 0.7 TH/MM3 Eosinophils # (Auto) 0.3 TH/MM3 0.3 TH/MM3 Basophils # (Auto) 0.0 TH/MM3 0.0 TH/MM3 CBC Comment DIFF FINAL DIFF FINAL Differential Comment Sodium Level 139 MEQ/L 141 MEQ/L Potassium Level 3.8 MEQ/L 4.0 MEQ/L Chloride Level 100 MEQ/L 100 MEQ/L Carbon Dioxide Level 34.9 MEQ/L 34.8 MEQ/L Anion Gap 4 MEQ/L 6 MEQ/L Blood Urea Nitrogen 9 MG/DL 7 MG/DL Creatinine 0.95 MG/DL 0.83 MG/DL Estimat Glomerular Filtration 81 ML/MIN 95 ML/MIN Rate Random Glucose 105 MG/DL 95 MG/DL Calcium Level 9.1 MG/DL 9.0 MG/DL Total Bilirubin 0.5 MG/DL 0.4 MG/DL Aspartate Amino Transf 14 U/L 13 U/L (AST/SGOT) Alanine Aminotransferase 15 U/L 14 U/L (ALT/SGPT) Alkaline Phosphatase 143 U/L 122 U/L Total Protein 7.7 GM/DL 6.9 GM/DL Albumin 3.1 GM/DL 2.8 GM/DL Lipase 78 U/L Physical Examination HEENT: EOMI; normocephalic; atraumatic; no jaundice. CHEST: CTA CARDIAC: RRR ABDOMEN: Soft, nondistended, nontender; no hepatosplenomegaly; bowel sounds are present in all four quadrants. EXTREMITIES: No clubbing, cyanosis, or edema. SKIN: Normal; no rash; no jaundice. WELL HEAD PUMPER: No focal deficits; alert and oriented times three. (Jyoti Lambert) Assessment and Plan Plan ASSESSMENT - abdominal pain, nv - hx esophageal adenocarcinoma s/p esophagectomy & gastric pull through at [facility], had EGD yesterday and subsequent severe lower abdominal pain, n/v. he has been unable to tolerate TF since getting J tube at [place] on January 25. CT 02-22-17 --> 1. Surgical changes status post esophagectomy and gastric pull through procedure. There are several low-attenuation fluidlike structures located in the upper abdomen which are of unclear significance. It is not certain whether these are intraluminal or extraluminal. Comparison with any old outside studies would be helpful. A followup study with oral contrast may be helpful. 2. Low attenuation collection along the right lower lateral chest wall measuring up to approximately 4.5 x 3.2 cm in diameter measuring 9 Hounsfield units in density. This is nonspecific but could represent a postsurgical change. This also could represent fluid extending through the lateral chest wall. 3. Wispy soft tissue densities along the anterior mesentery of the abdomen of unclear significance. This could represent inflammatory change. 4. Small right pleural effusion. There is mild consolidation in both lower lobes. Ugi series, GS consult pending. PLAN - await UGI series - await GS consult - supportive care - Further recommendations to follow This pt seen by myself and Dr Crandall and this note is written on his behalf ( Jyoti Lambert) Physician Comments Seen and examined, will review delay images of SBFT and will consider deflating the J-tube balloon and follow clinically . (Michelle Crandall MD) Jyoti Lambert Feb 23, 2017 10:14 Michelle Crandall MD Feb 23, 2017 23:46
[2017-02-23] MEDS: ACETAMINOPHEN 325MG/HYDROcodone 7.5MG/15ML UDC G-TUBE SCH ×3 (10:23→21:55)
[2017-02-23] MEDS: SODIUM CHLOR 0.45% 1000 ML INJ 1,000 ML IV SCH (11:05)
--- NOTE | 2017-02-23 13:36 | MB ---
cc: GABY,ANDRES Fernandes MD DATE OF CONSULTATION 02/23/2017 REASON FOR CONSULTATION Abdominal pain, history of recent esophagectomy at [facility] for esophageal cancer. HISTORY OF PRESENT ILLNESS This is a 56-year-old male who underwent what looks like a minimally invasive Blanca Carlito esophagectomy for esophageal cancer on January 25, as well as jejunostomy tube placement. The patient underwent EGD yesterday with Dr. Colbert. Biopsies were taken, but no dilation was required. Yesterday afternoon, the patient began to have severe lower abdominal crampy pain and presented to the emergency department. The patient and his relate his history to me. Apparently basically ever since surgery, he has been having issues with tolerating his tube feeds. He often gets abdominal discomfort and fullness and sometimes vomiting associated with the tube feeds. The worst issues with nausea and vomiting started about one week ago. He had started to take a little bit of oral diet such as saltines or small amounts of soup. PAST MEDICAL HISTORY Includes hypertension. PAST SURGICAL HISTORY 1. C5-6 fusion 2. Cholecystectomy 3. Umbilical hernia repair ALLERGIES No known allergies. MEDICATIONS 1. Metoprolol 2. Protonix FAMILY HISTORY Noncontributory SOCIAL HISTORY Rare alcohol use. No tobacco or drug use. REVIEW OF SYSTEMS Negative except as mentioned in the HPI. PHYSICAL EXAMINATION GENERAL: A tired and somewhat weak appearing 56-year-old male. He is not in acute distress. VITAL SIGNS: Temperature is 98.3, heart rate 78, respirations 20, blood pressure 137/72, 94% oxygen saturation on room air. HEAD: Normocephalic, atraumatic. EYES: Pupils equal, round and reactive to light bilaterally. No scleral icterus. LUNGS: Clear to auscultation bilaterally. No wheezing or rhonchi. CARDIOVASCULAR: Regular rate and rhythm. ABDOMEN: Soft, mild distension. Incision is clean, dry, and intact. J-tube is in place clamped, soft and nontender. EXTREMITIES: No cyanosis or edema. SKIN: Warm, dry, and non-jaundiced LABORATORY DATA White blood count 7. Chemistries essentially unremarkable. His albumin is 2.8. IMAGING STUDIES CT abdomen and pelvis showed surgical changes status post esophagectomy with some fluid-like structures in the upper abdomen, unclear if intra or extraluminal. There are some inflammatory changes in the anterior abdomen. There is a small right pleural effusion. IMPRESSION AND PLAN This is a 56-year-old male with abdominal pain, nausea, vomiting, status post esophagectomy. Etiology is unclear. The CT findings to me appear to show postsurgical changes. There is no obvious evidence of obstruction. I agree with proceeding with upper GI and small-bowel follow-through. I discussed the case with Dr. Alex Patel and he will evaluate the esophagogastric anastomosis as well as J-tube positioning. We will follow up with further recommendations. MD JADA Lopez/OLLIE /1:09 PM /1:20 PM
[2017-02-23] MEDS ORDERED: DIATRIZOATE MEGLUM/DIATRIZOATE SOD 120 ML BTL (for RAD DIAG) G-TUBE ONE (14:28)
--- NOTE | 2017-02-23 15:07 | RADRPT ---
EXAM DATE/TIME: 02/23/2017 13:44 [facility] COMPARISON: No previous studies available for comparison. INDICATIONS : Vomiting for 1 week. Evaluate for obstruction. Post op esophagectomy 1 month ago. FLUORO TIME: 6.4 minutes IMAGE COUNT: 19 CONTRAST: 1. E-Z HD Barium Sulfate (98% w/w) MEDICAL HISTORY : Carcinoma, esophageal. Cardiovascular disease. Hypertension. SURGICAL HISTORY : Cholecystectomy. Umbilical hernia repair. Cervical fusion. Esophagectomy. ENCOUNTER: Initial ACUITY: 1 week PAIN SCORE: 3/10 LOCATION: Esophagus. FINDINGS: The patient was placed on the fluoroscopy table. Approximately 10 cc of Gastrografin was advanced thr ough the patient's J-tube. The J-tube is in good position and is patent. The patient was allowed to consume approximately 1 cup of dilute barium contrast. There was rapid tra nsit from the oropharynx down to the stomach. The patient is post partial esophagectomy with gastric pullup. The anastomosis is widely patent. There was filling of the stomach. There was very little emptying of gastric content into the duodenum . There appeared to be a very significant narrowing at the level of the pylorus. The patient did not consume anymore barium secondary to emesis. A delayed film at one hour was performed. The stomach remains full with only a small amount of contra st within the small bowel. The visualized portions of small bowel appear fairly normal in caliber. CONCLUSION: 1. There is no evidence of anastomotic leak. There was very little outflow of contrast from the pyloric channel into the duodenum. Study would sug gest either functional or physiologic gastric outflow obstruction. At one hour there was a limited am ount of contrast within the proximal small bowel this appeared fairly normal in caliber. A followup K UB in 5-6 hours to evaluate progression of contrast through the small bowel would be of benefit. Mata Patel MD on February 23, 2017 at 15:02 Board Certified Radiologist. This report was verified electronically.
[2017-02-23 16:31] VITALS: BP 116/68; PULSE 57; RESP 20; TEMP 98.3; O2SAT 95
[2017-02-23 18:37] LABS: BLOOD, URINE NEG (NEG); COMMENT (UR) CULT NOT INDICATED; CULTURE IF INDICATED CULT NOT INDICATED; GLUCOSE,URINE NEG (NEG); KETONE, URINE NEG (NEG); MUCUS URINE MANY /lpf (OCC); NITRITE,URINE NEG (NEG); PH, URINE 5.5 (5.0-8.5); URINE COLOR YELLOW (YELLW/STRAW)
[2017-02-23 19:40] VITALS: BP 130/70; PULSE 53; RESP 20; TEMP 97.8; O2SAT 97
[2017-02-23] MEDS: PANTOPRAZOLE SODIUM 40 MG VIAL IV PUSH SCH (21:55)
--- NOTE | 2017-02-23 22:40 | RADRPT ---
EXAM DATE/TIME: 02/23/2017 20:43 [facility] COMPARISON: UPPER GI SERIES W/O KUB BATTERY TECHNICIAN, February 23, 2017, 13:44. INDICATIONS : Delayed Upper GI image. Vomiting for 1 week. Evaluate for obstruction. Post op esophagectomy 1 month ago. MEDICAL HISTORY : Carcinoma, esophageal. Cardiovascular disease. Hypertension. SURGICAL HISTORY : Esophagectomy, Cholecystectomy, Umbilical hernia repair, Cervical fusion. ENCOUNTER: Subsequent ACUITY: 1 day PAIN SCORE: 10/10 LOCATION: Bilateral abdomen. FINDINGS: Minimal contrast remains in the stomach. There is contrast present in nondilated distal small bowel a nd in the proximal colon in the right lower quadrant. CONCLUSION: Contrast has migrated through to normal caliber distal small bowel and proximal colon. Jasper Mcpherson MD on February 23, 2017 at 22:36 Board Certified Radiologist. This report was verified electronically.
[2017-02-23 23:51] VITALS: BP 144/78; PULSE 77; RESP 18; TEMP 97.8; O2SAT 97
[2017-02-24] MEDS: SODIUM CHLOR 0.45% 1000 ML INJ 1,000 ML IV SCH (00:25)
[2017-02-24] MEDS: DEXT 5%-NACL 0.45% 1000 ML INJ 1,000 ML IV SCH ×2 (01:05→08:52)
[2017-02-24] MEDS: HYDROmorphone HCL PF 1 MG/ML VIAL IV PRN ×4 (02:46→16:15)
[2017-02-24 05:09] VITALS: BP 121/67; PULSE 62; RESP 20; TEMP 98.3; O2SAT 95
[2017-02-24] MEDS: ACETAMINOPHEN 325MG/HYDROcodone 7.5MG/15ML UDC G-TUBE SCH ×2 (06:10→14:14)
[2017-02-24] MEDS: METOCLOPRAMIDE HCL 10 MG/2 ML VIAL IV PUSH SCH ×2 (06:10→14:14)
[2017-02-24 08:17] VITALS: BP 118/63; PULSE 68; RESP 20; TEMP 97.9; O2SAT 96
[2017-02-24] MEDS: DOCUSATE SODIUM 50 MG/SENNA 8.6 MG TAB PO SCH (08:38)
[2017-02-24] MEDS: SODIUM CHLORIDE 0.9% FLUSH 10 ML FLUSH IV FLUSH SCH (08:38)
[2017-02-24] MEDS: METOPROLOL TARTRATE 25 MG TAB PO SCH (08:38)
[2017-02-24] MEDS: ALPRAZolam 1 MG TAB PO SCH (08:38)
[2017-02-24 11:48] VITALS: BP 126/72; PULSE 60; RESP 18; TEMP 98.6; O2SAT 96
--- NOTE | 2017-02-24 11:50 | HHI.PR ---
Subjective Remarks States that he has passed flatus. Pt feels much more comfortable today. Pt states that he tried to eat (by mouth) yesterday which lead to his increased abdominal pain and subsequent admission. Objective Vitals Vital Signs Date Time Temp Pulse Resp B/P Pulse Ox O2 Delivery O2 Flow Rate FiO2 02/24/17 08:17 97.9 68 20 118/63 96 02/24/17 07:21 18 02/24/17 07:20 18 02/24/17 05:09 98.3 62 20 121/67 95 02/23/17 23:51 97.8 77 18 144/78 97 02/23/17 19:40 97.8 53 20 130/70 97 02/23/17 16:31 98.3 57 20 116/68 95 02/23/17 02/23/17 02/24/17 15:00 23:00 07:00 Output Total 400 ml Balance -400 ml Output Urine Total 400 ml Result Diagram: 02/23/17 0625 02/23/17 0625 Imaging Last Impressions Abdomen X-Ray 02/23/17 2100 Signed Impressions: Service Date/Time: February 20:43 - CONCLUSION: Contrast has migrated through to normal caliber distal small bowel and proximal colon. Jasper Mcpherson MD Upper GI Series 02/23/17 0000 Signed Impressions: Service Date/Time: February 13:44 - CONCLUSION: 1. There is no evidence of anastomotic leak. There was very little outflow of contrast from the pyloric channel into the duodenum. Study would suggest either functional or physiologic gastric outflow obstruction. At one hour there was a limited amount of contrast within the proximal small bowel this appeared fairly normal in caliber. A followup KUB in 5-6 hours to evaluate progression of contrast through the small bowel would be of benefit. Mata Patel MD Abdomen/Pelvis CT 02/22/17 1804 Signed Impressions: Service Date/Time: Wednesday, February 22, 2017 19:36 - CONCLUSION: 1. Surgical changes status post esophagectomy and gastric pull through procedure. There are several low-attenuation fluidlike structures located in the upper abdomen which are of unclear significance. It is not certain whether these are intraluminal or extraluminal. Comparison with any old outside studies would be helpful. A followup study with oral contrast may be helpful. 2. Low attenuation collection along the right lower lateral chest wall measuring up to approximately 4.5 x 3.2 cm in diameter measuring 9 Hounsfield units in density. This is nonspecific but could represent a postsurgical change. This also could represent fluid extending through the lateral chest wall. 3. Wispy soft tissue densities along the anterior mesentery of the abdomen of unclear significance. This could represent inflammatory change. 4. Small right pleural effusion. There is mild consolidation in both lower lobes. Peterson Carter MD Objective Remarks GENERAL: This is a well-nourished, well-developed patient, in no apparent distress. CARDIOVASCULAR: Regular rate and rhythm without murmurs, gallops, or rubs. RESPIRATORY: Clear to auscultation. Breath sounds equal bilaterally. No wheezes , rales, or rhonchi. GASTROINTESTINAL: Abdomen soft, non-tender, nondistended. Normal active bowel sounds Abdominal exam is benign today - much improved from yesterday MUSCULOSKELETAL: Extremities without clubbing, cyanosis, or edema. NEURO: Alert & Oriented x4 to person, place, time, situation. Moves all ext x4 A/P Problem List: (1) Abdominal pain Status: Acute Plan: - Pt underwent esogagectmy with upper flexible endoscopy and placement of jejunal feeding tube by Dr. 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 Chang, Oncology - Pt underwent EGD 02/22/[address] Colbert at [place]. - Pt found to have LA Class D esophagitis. - Multiple biopsies performed. - Pt presented to ER yesterday evening with c/o n/v & abdominal pain. - Case d/w Dr. Colbert by phone. Pt had similar complaints yesterday prior to EGD. - CT abdomen (02/23/17) - NOT c/w SBO - post surgical changes - possible fluid overlying the pancrease - Upper GI Series with SBFT (02/23/17) - NO anastomotic leak - little outflow through pyloric channel - KUB (02/23/17) - Contrast has migrated through to normal caliber distal small bowel and proximal colon - continue scheduled hydrocodone elixir - prn IV dilaudid - prn zofran - Case d/w Dr. Arellano by phone (02/24/17) - pt feeling much improved and eager for discharge - will resume TF with previous goal of 40ml/hr - if pt able to tolerate TF with only ice chips by mouth (NO solid foods by mouth) then will d/c to home this evening - pt/ to contact [facility], Dr. Ch to arrange f/u for early next week. (2) Nausea and vomiting Status: Acute Plan: as above (3) HTN (hypertension) Status: Chronic Plan: - stable - metoprolol Problem Qualifiers (1) HTN (hypertension): Qualified Code: I10 - Essential hypertension Ab Le DO Feb 24, 2017 11:50
--- NOTE | 2017-02-24 13:07 | HHI.PR ---
Subjective Subjective Notes He is anxious to go home. UGI and SBFT showed poor gastric emptying but otherwise was normal with J tube functioning and no bowel obstruction. Objective Vitals/I&O Vital Signs Date Time Temp Pulse Resp B/P Pulse Ox O2 Delivery O2 Flow Rate FiO2 02/24/17 11:48 98.6 60 18 126/72 96 02/22/17 20:21 Room Air 02/22/17 18:43 4 Labs Laboratory Tests Test 02/23/17 18:12 Urine Color YELLOW Urine Turbidity CLEAR Urine pH 5.5 Urine Specific [place] 1.028 Urine Protein TRACE Urine Glucose (UA) NEG Urine Ketones NEG Urine Occult Blood NEG Urine Nitrite NEG Urine Bilirubin NEG Urine Urobilinogen LESS THAN 2.0 Urine Leukocyte Esterase NEG Urine RBC LESS THAN 1 Urine WBC 1 Urine Mucus MANY Microscopic Urinalysis Comment CULT NOT INDICATED Narrative Exam NAD Sitting up in bed Abd soft, j tube clamped A/P Assessment and Plan 56 yo M s/p Ellis Carlito min invasive esophagectomy and J tube placement 01/25 at [place]. Difficulty tolerating enteral feeding at home. He is anxious to go home now. Contrast study pretty unremarkable. I am ok with d/c if he tolerates enteral feeding at a decent rate. He will only have ice chips/saltines by mouth. He will f/u with surgeon at [facility] next week. Adna,Shaheed MELENDEZ Feb 24, 2017 13:07
[2017-02-24 16:12] VITALS: RESP 18
== END 2017-02-24 18:53 | disposition home or self-care (01) ==
LOC: NEPE 17:30 → NEDA 20:44 → NEPGCP 02-23 00:29
PROVIDERS: ADMIT Hospitalist; ATTEND Hospitalist
DX: R10.30 Lower abdominal pain, unspecified (principal); R11.2 Nausea with vomiting, unspecified; C15.5 Malignant neoplasm of lower third of esophagus; K20.9 Esophagitis, unspecified; I10 Essential (primary) hypertension; Z87.891 Personal history of nicotine dependence; Z93.4 Other artificial openings of gastrointestinal tract status
CPT/HCPCS: 74000; 74177; 74240; 80053; 81001; 83690; 85025; 96365; 96366; 96375; 96376; 99285; C9113; G0378; J1170; J2270; J2405; J2765; J7030; Q9963; Q9967

== ENCOUNTER → 2017-02-22 | Day surgery (SDC) | payer OTHER ==
[~2017-02-22] MED LIST: FENT50T T-DERMAL; HYDR1SOL6 G-TUBE; LACTATED RINGER'S 1000 ML INJ 1,000 ML ONE; METO25TA3 PO; ONDA1TAB16 PO; PANT40TA3 PO; PROPOFOL 200 MG/20 ML AMP IV ONE; REGL10TA5 PO; XANA2TAB2 PO
--- NOTE | 2017-02-22 09:52 | GIPROC ---
[facility] [address] [facility], [address] EGD PROCEDURE REPORT EXAM DATE: 02/22/2017 PATIENT NAME: Marcellus Isabel MR #: [id number] BIRTHDATE: 1960 ATTENDING: Reese Colbert MD ORDER #: [id number] PHARMACOEPIDEMIOLOGIST: Amna John RN STATUS: outpatient INDICATIONS: The patient is a 56 yr old male here for an EGD due to nausea and vomiting PROCEDURE PERFORMED: EGD w/ biopsy MEDICATIONS: None, Per Anesthesia, None, and Per Anesthesia. TOPICAL ANESTHETIC: CONSENT: The patient understands the risks and benefits of the procedure and understands that these risks include, but are not limited to: sedation, allergic reaction, infection, perforation and/or bleeding. Alternative means of evaluation and treatment include, among others: physical exam, x-rays, and/or surgical intervention. The patient elects to proceed with this endoscopic procedure. medical equipment was checked for proper function. Hand hygiene and appropriate measures for infection prevention was taken. After the risks, benefits and alternatives of the procedure were thoroughly explained, Informed consent was verified, confirmed and timeout was successfully executed by the treatment team. The patient was anesthetized with topical anesthesia and the EC-[id number] ([id number]) endoscope was introduced through the mouth and advanced to the second portion of the duodenum. Retroflexed views revealed no abnormalities The gastroscope was then slowly withdrawn and removed. ESOPHAGUS: There was LA Class D esophagitis noted. Multiple biopsies were performed. Post distal esophagectomy with gastric pull through. The endoscopy was otherwise normal. ADVERSE EVENTS: There were no complications. IMPRESSIONS: 1. There was LA Class D esophagitis noted; multiple biopsies were performed 2. Post distal esophagectomy with gastric pull through 3. Normal endoscopy otherwise 4. Retroflexed views revealed no abnormalities RECOMMENDATIONS: 1. Await biopsy results. Biopsy results will not be ready for 7-10 days. If you don't hear from us in two weeks, call our office for biopsy results. 2. Follow-up: GI clinic 3 week(s) 3. Protonix 40mg BID 4. Reglan 10mg TID PATIENT CONDITION: stable DISPOSITION: Home REPEAT EXAM: Return 2 months EGD Reese Colbert MD eSigned: Reese Colbert MD 02/22/2017 9:52 AM cc: Rosendo Aguilar [facility] Radha PATIENT NAME: Marcellus Isabel MR#: [id number]
== END | disposition home or self-care (01) ==
LOC: ESDC 08:27
PROVIDERS: ATTEND Internal Medicine Gastroenterology
DX: R11.2 Nausea with vomiting, unspecified (principal); K20.9 Esophagitis, unspecified
CPT/HCPCS: 00740; 43239; 88305; J3010; J7120